=== PATIENT | male | born 1960 | race African-American/Black ===

== ENCOUNTER 2018-04-22 16:18 | Outpatient (CLI) | payer OTHER ==
--- NOTE | 2018-04-22 17:25 | RAD ---
RIGHT ANKLE THREE VIEWS: 04/22/18 HISTORY: Ankle pain. Vascular calcifications are seen. There is a tiny spur involving the tip of the medial malleolus. The re is no signs of joint space narrowing or fracture. IMPRESSION: No acute findings. POS: [facility]
== END 2018-04-22 16:19 | disposition home or self-care (01) ==
LOC: RAD 16:18 → ERS 16:18 → RAD 16:19 → EDSTATUS 16:43
PROVIDERS: ATTEND Emergency Medicine
DX: S82.891A Other fracture of right lower leg, initial encounter for closed fracture (principal)

== ENCOUNTER 2019-05-22 12:48 | Outpatient (CLI) | payer OTHER ==
--- NOTE | 2019-05-22 13:40 | ULT ---
RENAL ULTRASOUND WITH VÁZQUEZ SCALE AND DOPPLER COLOR FLOW IMAGING: CLINICAL HISTORY: History of hematuria and chronic renal disease. FINDINGS: The demonstrated right renal length is 10.7 cm and the left renal length is 11 cm. There is no overt hydronephrosis within either kidney. Hypoechoic foci of each kidney are present, some of which do reveal complex echotexture. Within a cy st at the superior region of the left kidney, which measures approximately 1.6 cm in diameter, there is a hyperechoic focus which could represent adjacent renal sinus fat or, alternatively, a hyperechoi c focus at the periphery of the cyst, difficult to reliably discern on the basis of this exam. There is an additional 1.8 cm hypoechoic focus centrally within the left kidney with somewhat indistinct/i rregular margins. No definitive internal flow by Doppler evaluation is seen. Within the right kidne y, there is a small 1.2 x 1.5 cm hypoechoic focus with linear dependent-appearing hyperechogenicity, possibly wall calcification, or milk of calcium. Urinary bladder is mildly distended. IMPRESSION: Mildly complex renal cysts, bilaterally. As a conservative measure, a pre- and postcontrast CT abdom en utilizing renal mass protocol is recommended for more definitive characterization. POS: [facility]
== END 2019-05-22 12:49 | disposition home or self-care (01) ==
LOC: ULT 12:48
PROVIDERS: ATTEND Family Medicine
DX: N18.3 Chronic kidney disease, stage 3 (moderate) (principal); R31.29 Other microscopic hematuria; N28.1 Cyst of kidney, acquired
CPT/HCPCS: 36415; 76770; 80048; 81003; 82306; 86160; 86225; 86235; 86376

== ENCOUNTER 2019-05-29 12:57 | Outpatient (CLI) | payer OTHER ==
--- NOTE | 2019-05-29 14:58 | CT ---
CT OF THE ABDOMEN AND PELVIS WITHOUT AND WITH CONTRAST: COMPARISON: None. HISTORY: Microhematuria. TECHNIQUE: Multiple contiguous axial images were obtained in a CT of the abdomen and pelvis without and with IV contrast. Postcontrast images were obtained in the nephrographic and excretory phases. Coronal refo rmats were performed. FINDINGS: No calcifications are seen in either kidney. Scattered hypodensities in the bilateral kidneys measur ing up to 1.8 cm in size represent cysts. O solid renal mass is seen. There is no delay in either n ephrogram. Both ureters are unremarkable without focal abnormality. The urinary bladder is unremark able. The liver, gallbladder, adrenal glands, spleen, and pancreas are unremarkable. No free air, free flu id, or stranding changes are seen in the abdomen or pelvis. The large and small bowel are unremarkable. The appendix is normal. No abdominal or pelvic lymphade nopathy are seen. Degenerative changes are seen in the spine. Visualized inferior thorax and abdominal wall soft tissu es are unremarkable. IMPRESSION: Bilateral renal cysts; otherwise, unremarkable exam. POS: [facility]
== END 2019-05-29 12:58 | disposition home or self-care (01) ==
LOC: SCSCT 12:57
PROVIDERS: ATTEND Urology
DX: R31.29 Other microscopic hematuria (principal); Q61.02 Congenital multiple renal cysts
CPT/HCPCS: 74178

== ENCOUNTER 2021-11-16 11:49 | Outpatient (CLI) | payer OTHER | END 2021-11-16 11:50 | disposition home or self-care (01) | LOC: CT 11:49 | PROVIDERS: ATTEND Family Medicine | DX: K42.9 Umbilical hernia without obstruction or gangrene (principal) | CPT/HCPCS: 74177; 82565 ==

== ENCOUNTER → 2021-11-18 | Day surgery (SDC) | payer BC, OTHER ==
[~2021-11-18] MED LIST: Acetaminophen 500 MG TAB ONE; Bupivacaine 0.25% 10 ML VIAL ONE; Dexamethasone 20 MG/5 ML VIAL ONE; Dexmedetomidine 200 MCG/2 ML VIAL ONE; Fentanyl 100 MCG/2 ML VIAL ONE; Glycopyrrolate 0.2 MG/ML 5 ML SYRINGE ONE; Lidocaine 1% PF 5 ML VIAL ONE; Ondansetron PF 4 MG/2 ML Vial ONE; PROPOFOL 200 MG/20 ML VIAL ONE; Rocuronium Bromide 10 MG/ML (10ML VIAL) ONE; Xylocaine 1% w/ Epi 1:100K 10 ML VIAL ONE; ceFAZolin 2 GM/DEX 5% 100 ML BAG ONE; ePHEDrine 50 MG/ML VIAL ONE
== END ==
LOC: SDC/OP 07:09
PROVIDERS: ATTEND Surgery
PROC: 0WUF4JZ Supplement Abdominal Wall with Synthetic Substitute, Percutaneous Endoscopic Approach (ICD-10-PCS; principal; 2021-11-18)
DX: K42.0 Umbilical hernia with obstruction, without gangrene (principal); K43.6 Other and unspecified ventral hernia with obstruction, without gangrene; I10 Essential (primary) hypertension; I48.20 Chronic atrial fibrillation, unspecified; Z79.01 Long term (current) use of anticoagulants; Z79.899 Other long term (current) drug therapy
CPT/HCPCS: C1781; J1100; J2405; J2704; J3010; J3490; S0020

== ENCOUNTER 2021-12-08 09:58 | Outpatient (CLI) | payer BC ==
[2021-12-08] MEDS ORDERED: Magnevist 469MG/ML 20 ML VIAL ONE (10:21)
== END 2021-12-08 09:59 | disposition home or self-care (01) ==
LOC: MRI 09:58
PROVIDERS: ATTEND Family Medicine
DX: N28.89 Other specified disorders of kidney and ureter (principal)
CPT/HCPCS: 74183